=== PATIENT | female | born 1990 | race Caucasian/White ===

== ENCOUNTER 2024-06-07 19:30 | Inpatient (IN) | payer OTHER ==
[2024-06-07 22:27] VITALS: BMI 29.0
[2024-06-07] MEDS ORDERED: Promethazine HCl 25 MG/ML VIAL IM PRN (23:06)
[2024-06-07] MEDS ORDERED: fentaNYL 50 mcg/mL 1 mL Vial SLOW IVP PRN (23:06)
[2024-06-07] MEDS ORDERED: Lidocaine 1% (PF) 30 ML VIAL SC PRN (23:06)
[2024-06-07] MEDS ORDERED: Ondansetron PF 4 MG/2 ML Vial IVP PRN (23:06)
[2024-06-07] MEDS ORDERED: hydrALAZINE 20 MG/ML VIAL SLOW IVP PRN (23:06)
[2024-06-07] MEDS ORDERED: Acetaminophen 500 MG TAB PO PRN (23:06)
[2024-06-07 23:31] LABS: Hematocrit 36.8 % (34.9-44.5); Hemoglobin 12.7 g/dL (12.0-15.5); Mean Corpuscular HGB CONC 34.5 g/dL (32.0-36.0); Mean Corpuscular Hemoglobin 31.1 pg (27.0-33.0); Mean Corpuscular Volume 90.2 fL (81.6-98.3); Mean Platelet Volume 10.2 fL (7.4-10.4); Platelet Count 217 10x3/uL (150-450); RBC Distribution Width 13.6 % (11.5-14.5); Red Blood Cell (RBC) Count 4.08 10x6/uL (3.90-5.03)
[2024-06-07] MEDS ORDERED: Oxytocin 30 units/NS 500 ML 500 ML IV SCH ×2 (23:59)
[2024-06-08 00:01] LABS: Syphilis Antibody Nonreactive (Nonreactive); Syphilis Antibody Index 0.06 S/CO (<1.00 Non-Reactive)
[2024-06-08] MEDS: Misoprostol 100 MCG TAB VAG SCH (00:40)
[2024-06-08] MEDS: Lactated Ringer's 1,000 ML IV SCH (00:43)
[2024-06-08 00:53] LABS: HBsAg Index 0.18 S/CO (0-0.99); Hep B Surf Ag - L&D Non-Reactive S/CO (NonReactive)
[2024-06-08] MEDS ORDERED: Glucagon 1 MG/ML KIT IM PRN (07:29)
[2024-06-08] MEDS ORDERED: Dextrose 50% Abboject 50 ML SYRINGE SLOW IVP PRN (07:29)
[2024-06-08] MEDS ORDERED: Insulin Regular, Human 100 UNIT/ML 10 ML VIAL SC PRN (07:29)
[2024-06-08] MEDS ORDERED: Dextrose 5% in Water 1,000 ML IV PRN (07:29)
[2024-06-09] MEDS ORDERED: Naloxone HCl 0.4 mg/ml Vial IV PRN (01:12)
[2024-06-09] MEDS ORDERED: Naloxone HCl 0.4 mg/ml Vial IVP PRN ×2 (01:12)
[2024-06-09] MEDS ORDERED: Meperidine HCl/PF 25 MG (1 mL) VIAL SLOW IVP PRN (01:12)
[2024-06-09] MEDS ORDERED: Moisturizing Cream (Eucerin) 113 GM JAR TOP PRN (01:12)
[2024-06-09] MEDS ORDERED: fentaNYL 50 mcg/mL 1 mL Vial SLOW IVP PRN ×2 (01:12→13:15)
[2024-06-09] MEDS ORDERED: Ondansetron PF 4 MG/2 ML Vial IVP PRN ×2 (01:12)
[2024-06-09] MEDS ORDERED: Promethazine HCl 25 MG/ML VIAL IM PRN (01:12)
[2024-06-09] MEDS ORDERED: Communication Order-Pharmacy FS SCH (01:15)
[2024-06-09 01:22] LABS: Analyzer IN Cardio CS NICU; RapidComm Collect By RN; pH (Cord, venous) 7.328 (7.250-7.350)
[2024-06-09 01:23] LABS: Analyzer IN Cardio CS NICU; RapidComm Collect By RN
[2024-06-09] MEDS ORDERED: Lanolin Ointment 7 GM TUBE TOP PRN (01:30)
[2024-06-09] MEDS ORDERED: Methylergonovine 0.2 MG/ML VIAL IM PRN (01:30)
[2024-06-09] MEDS ORDERED: hydrALAZINE 20 MG/ML VIAL SLOW IVP PRN (01:30)
[2024-06-09] MEDS ORDERED: Bisacodyl 10 MG SUPP PR PRN (01:30)
[2024-06-09] MEDS ORDERED: Boostrix 0.5 ML (Tdap) VIAL (>/=7 yrs of age) IM ONE (01:30)
[2024-06-09] MEDS ORDERED: Misoprostol 200 MCG TAB PR PRN (01:30)
[2024-06-09] MEDS ORDERED: Ketorolac Tromethamine 30 MG (1 mL) VIAL IVP SCH (01:45)
[2024-06-09] MEDS: diphenhydrAMINE 50 MG/ML VIAL IVP PRN (04:59)
[2024-06-09] MEDS: CEFAZOLIN 2 GM VIAL ONE (06:06)
[2024-06-09] MEDS: Dexamethasone 10 MG/ML VIAL ONE (06:06)
[2024-06-09] MEDS: Morphine PF 10 MG/10 ML VIAL ONE (06:06)
[2024-06-09] MEDS: Azithromycin 500 MG VIAL ONE (06:06)
[2024-06-09] MEDS: Ondansetron PF 4 MG/2 ML Vial ONE (06:07)
[2024-06-09] MEDS: Oxytocin 10 UNITS/ML VIAL ONE (06:07)
[2024-06-09] MEDS: Sterile Water 10 ML ONE (06:08)
[2024-06-09] MEDS: Ketorolac Tromethamine 30 MG (1 mL) VIAL ONE (07:38)
[2024-06-09] MEDS: Ferrous Sulfate 325 MG TAB PO SCH (07:59)
[2024-06-09] MEDS: Docusate 100 MG CAP PO SCH (08:34)
[2024-06-09] MEDS: Prenatal Vitamin 1 TAB PO SCH (08:35)
[2024-06-09] MEDS ORDERED: Zolpidem Tartrate 5 MG TAB PO PRN (13:15)
[2024-06-09] MEDS: Ibuprofen 800 MG TAB PO PRN (14:15)
[2024-06-09] MEDS: Simethicone Chewable 80 MG TAB PO PRN (20:37)
[2024-06-09] MEDS: HYDROcodone/Acetaminophen 5/325 mg Tablet PO PRN (21:58)
[2024-06-10 04:34] LABS: Hematocrit 30.1 % (34.9-44.5); Hemoglobin 10.1 g/dL (12.0-15.5); Mean Corpuscular HGB CONC 33.6 g/dL (32.0-36.0); Mean Corpuscular Hemoglobin 30.6 pg (27.0-33.0); Mean Corpuscular Volume 91.2 fL (81.6-98.3); Mean Platelet Volume 9.8 fL (7.4-10.4); Platelet Count 189 10x3/uL (150-450); RBC Distribution Width 13.4 % (11.5-14.5); White Blood Cell (WBC) Count 11.1 10x3/uL (3.5-10.5)
[2024-06-10] MEDS: Acetaminophen 325 MG TAB PO PRN (08:32)
[2024-06-11] MEDS: Polyethylene Glycol 3350 17 GM Packet PO SCH (09:03)
[2024-06-11] MEDS ORDERED: HYDROcodone/Acetaminophen 5/325 mg Tablet PO PRN (11:04)
[2024-06-11 11:34] VITALS: BP 127/82; TEMP 97.8
[2024-06-11] MEDS: HYDROcodone/Acetaminophen 5/325 mg Tablet PO PRN (13:12)
== END 2024-06-11 14:00 | disposition home or self-care (01) | DRG 788 ==
LOC: CSHLD 21:00 → CSHPP 06-09 03:38
PROVIDERS: ADMIT Obstetrics & Gynecology; ATTEND Obstetrics & Gynecology
PROC: 10907ZC Drainage of Amniotic Fluid, Therapeutic from Products of Conception, Via Natural or Artificial Opening (ICD-10-PCS; principal; 2024-06-08)
PROC: 10D00Z1 Extraction of Products of Conception, Low, Open Approach (ICD-10-PCS; 2024-06-09)
DX: O48.1 Prolonged pregnancy (principal); Z3A.42 42 weeks gestation of pregnancy; Z37.0 Single live birth; O76 Abnormality in fetal heart rate and rhythm complicating labor and delivery; O32.4XX0 Maternal care for high head at term, not applicable or unspecified
CPT/HCPCS: 36415; 36416; 51702; 82805; 85027; 86780; 86850; 86900; 86901; 87340; 88307; J1100; J1200; J1885; J2274; J2405; J2590; J7120